=== PATIENT | female | born 1950 | race Caucasian/White ===

== ENCOUNTER 2024-10-17 02:12 | Emergency (ER) | payer MEDICARE, OTHER, SELFPAY ==
[2024-10-17 02:14] VITALS: PULSE 87; RESP 18; TEMP 36.8; O2SAT 97; BMI 36.8
--- NOTE | 2024-10-17 02:40 | CT_ITS ---
PROCEDURE: CHEST WITHOUT CONTRAST REASON FOR EXAM: Question left rib fracture TECHNIQUE: Chest CT without contrast. COMPARISON: None. FINDINGS: Hardware: None. Lymph nodes: No mediastinal hilar or axillary lymphadenopathy. Heart and Vasculature: Coronary artery calcifications are noted. Atherosclerotic calcifications of the thoracic aorta. Thoracic aorta and pulmonary arteries have normal contours; noncontrast technique limits evaluation. Coronary Artery Calcifications: Lungs and Airways: Mild dependent atelectasis. Pleura: No pleural effusion. No pneumothorax. Upper Abdomen: Significant amount of stool in the transverse colon. Punctate calcifications in the liver and spleen Bones: Bone windows are unremarkable. Thoracic Aorta: No evidence of acute traumatic aortic injury. Lungs and Airways: The lungs are normally expanded and clear. Pleura: No pleural effusion. No pneumothorax. Bones: Degenerative changes of the spine. No acute rib fracture Other: Moderate hiatal hernia CT/Chest without Contrast IMPRESSION: 1. No acute rib fracture 2. Abdominal granulomatous disease 3. Significant amount of stool in the transverse colon. Correlate with consti pation One or more dose reduction techniques were used (e.g., Automated exposure contr ol, adjustment of the mA and/or kV according to patient size, use of iterative reconstruction technique). Reading Location: [facility]
[2024-10-17] MEDS: Ondansetron ODT 4 MG Tablet PO (02:46)
[2024-10-17] MEDS: HYDROmorphone 1 MG/ML Syringe 2 MG IM (02:47)
[2024-10-17 04:14] VITALS: BP 124/71; PULSE 77; RESP 16; O2SAT 92
--- NOTE | 2024-10-17 04:25 | EDS_ITS ---
HPI History of Present Illness Chief Complaint: Fall Informant: patient Narrative Narrative: Patient is a 74-year-old female with past medical history of hypertension. She states that she lost her balance and fell from a standing position onto a coffee table injuring her left ribs. She states she has had pain with any type of motion or breathing and has concern for rib fracture and therefore comes in for evaluation. She denies striking her head or any loss of consciousness and she states she has no history of bleeding disorder nor does she take blood thinners [facility] Medical History (Updated 10/22/24 @ 05:[address] Celestino Weaver, DO) Hypertension Allergy/AdvReac Type Severity Reaction Status Date / Time No Known Allergies Allergy Verified 10/17/24 02:14 Surgical History (Updated 10/17/24 @ 02:18 by Olimpia Mcduffie) History of hip replacement Hx of total knee replacement Social History Smoking Status: Former smoker ROS ROS ED Constitutional Constitutional ED: Denies chills or fever(s) Eyes Eyes: Denies blurry vision or change in vision ENT ENT ED: Denies sore throat Cardiovascular Cardiovascular: Reports other Details: Negative syncope ; Denies chest pain Respiratory/Chest Respiratory/Chest: Denies cough or dyspnea Gastrointestinal Gastrointestinal: Denies abdominal pain, diarrhea, nausea or vomiting Genitourinary Genitourinary ED: Denies dysuria or hematuria Musculoskeletal Musculoskeletal: Reports other Details: Positive left chest/rib pain ; Denies back pain or neck pain Integumentary Denies Abrasions Neurologic Neurologic: Denies headache(s) Hematologic/Lymphatic Hematologic/Lymphatic: Denies easy bleeding or easy bruising EXAM Physical Exam Const Vital Signs: 10/17/24 02:14 10/17/24 02:17 10/17/24 04:14 Temperature 98.3 F Temperature Source Oral Pulse Rate 87 77 Respiratory Rate 18 16 Respiratory Effort Normal Non-Labored Respiratory Depth Normal Respiratory Pattern Normal Blood Pressure 124/71 H Blood Pressure Mean 88 Pulse Ox 97 92 Oxygen Delivery Method Room Air Room Air Room Air Positive well nourished and well developed General Appearance ED: well developed HEENT HEENT Narrative: Normocephalic atraumatic No signs of depressed or basilar skull fracture Eyes PERRL and EOMs intact bilaterally General Eye ED: Negative for scleral icterus Neck supple Neck Narrative: No bony deformity or step-off of the cervical spine no midline tenderness to palpation Chest Wall Chest Narrative: There is palpation of the left anterior lateral rib cage rib regions 8-12 without bony deformity or crepitance Resp normal respiratory effort and clear to auscultation bilaterally Resp Narrative: Breath sounds are diminished throughout without signs of respiratory distress Cardio regular rate and regular rhythm GI normal to inspection, nondistended, normoactive bowel sounds, non-tender, non- distended and no masses GI Narrative: No abrasions or ecchymosis noted No voluntary guarding or rigidity or pulsatile mass Auscultation: normoactive bowel sounds Palpation: soft Back/Spine Back/Spine Narrative: No bony deformity or step-off of the thoracic or lumbar spine no midline tenderness to palpation Extremity normal to inspection Extremity Narrative: Pelvis is stable there is no shortening or external rotation of either lower extremity Neuro oriented x3, CN's II-XII intact bilaterally and no sensory deficits noted Sensorium / Orientation: alert Psych mental status grossly normal Skin no rashes or lesions noted Skin Narrative: No abrasions or ecchymosis noted MDM MDM MDM Narrative Medical decision making narrative: Patient presented to the ER with stable vitals and reported a mechanical fall and therefore I felt no need for cardiac or syncope workup. We discussed CT in her head based on the fall but patient denies striking her head and states she has very low concern that there is underlying brain injury and does not want a head CT obtained. We also discussed obtaining a CT of her abdomen and pelvis to ensure there is no sign of splenic injury or intestinal hematoma the patient states that she has low concern for this as well and is only concerned about potential rib fracture. She reports she had previous x-rays that did not show any type of rib fracture and those were only present on CT scan. Therefore elected to perform a noncontrast CT. this revealed chronic findings of old rib fractures which she reported but no signs of acute fracture and no pneumothorax or hemothorax or pulmonary contusion. Therefore there is no need for further workup and patient is otherwise safe for discharge History & Record Review Discussion w/independent historian: Patient and Significant other Radiography Diagnostic Testing: Clinical Impression(s) from Imaging Studies Chest CT 10/17/24 02:40 IMPRESSION: 1. No acute rib fracture 2. Abdominal granulomatous disease 3. Significant amount of stool in the transverse colon. Correlate with constipation One or more dose reduction techniques were used (e.g., Automated exposure control, adjustment of the mA and/or kV according to patient size, use of iterative reconstruction technique). Reading Location: [facility] Discharge Plan Triage Chief Complaint: Fall ED Provider: Celestino Weaver Dx/Rx/DC Orders Clinical Impression: Contusion of rib on left side, Hypertension, Accidental fall Instructions: ED Rib Contusion or Minor Fracture Primary Care Provider: Ever Banks Referrals: Ever Banks, [Primary Care Provider] - Activity Restrictions/Additional Instructions: The CT scan of your chest did not reveal any new rib fracture or hole in your lungs/pneumothorax or bleeding within the lung tissue. Continue all of your pain medication as directed by your doctor and reach out to him/her to discuss a potential increase in medication secondary to the trauma. Return to the ER should you have any further concerns Print Language: Kittitian Disposition Disposition: Home, Self Care Discharge Date/Time: 10/17/24 04:32
[2024-10-17 04:31] VITALS: BP 107/76; PULSE 93; RESP 18; TEMP 36.8; O2SAT 95
== END 2024-10-17 04:32 | disposition home or self-care (01) ==
PROVIDERS: Emergency Provider Emergency Medicine; PCP Family Medicine; Visit Provider Emergency Medicine
DX: S20.212A Contusion of left front wall of thorax, initial encounter (principal); Z87.891 Personal history of nicotine dependence; I10 Essential (primary) hypertension; W01.190A Fall on same level from slipping, tripping and stumbling with subsequent striking against furniture, initial encounter
CPT/HCPCS: 71250; 96372; 99285